=== PATIENT | female | born 1985 | race African-American/Black ===

== ENCOUNTER 2016-10-28 21:06 | Emergency (ER) | payer MEDICAID, OTHER ==
[~2016-10-28] VITALS: Ht 157.5 cm; Wt 53.0 kg
[2016-10-28 22:13] VITALS: BP 100/69
[2016-10-28 23:49] LABS: CLARITY URINE CLOUDY (CLEAR); COLOR URINE YELLOW (YELLOW); GLUCOSE URINE NEGATIVE (NEGATIVE); KETONES URINE NEGATIVE (NEGATIVE); LEUKOCYTE ESTERASE URINE NEGATIVE (NEGATIVE); NITRITE URINE NEGATIVE (NEGATIVE); OCCULT BLOOD URINE TRACE (NEGATIVE); PH URINE 6.5 (4.5-8.0); PROTEIN URINE NEGATIVE (NEGATIVE); SPECIFIC GRAVITY URINE 1.017 (1.005-1.030)
[2016-10-29] MEDS ORDERED: ACETAMINOPHEN 500MG TABLET PO ONE
== END 2016-10-29 00:45 | disposition home or self-care (01) ==
LOC: ER 22:06
DX: B34.9 Viral infection, unspecified (principal); K21.9 Gastro-esophageal reflux disease without esophagitis; J45.909 Unspecified asthma, uncomplicated
CPT/HCPCS: 81001; 81025; 99283

== ENCOUNTER 2017-10-11 11:08 | Emergency (ER) | payer MEDICAID ==
[~2017-10-11] VITALS: Ht 152.4 cm; Wt 52.0 kg
[2017-10-11 11:31] VITALS: BP 110/77
[2017-10-11] MEDS ORDERED: CYCLOBENZAPRINE 10MG TABLET PO ONE (13:30)
[2017-10-11] MEDS ORDERED: KETOROLAC 60MG/2ML VIAL IM ONE (13:30)
== END 2017-10-11 13:50 | disposition home or self-care (01) ==
LOC: ER 13:50
DX: M54.5 Low back pain (principal); F12.90 Cannabis use, unspecified, uncomplicated
CPT/HCPCS: 96372; 99283; J1885

== ENCOUNTER 2018-07-24 04:57 | Emergency (ER) | payer MEDICAID ==
[~2018-07-24] VITALS: Ht 167.6 cm; Wt 58.0 kg
[2018-07-24] MEDS ORDERED: ACETAMINOPHEN 500MG TABLET PO ONE (07:30)
[2018-07-24 08:32] VITALS: BP 100/70
== END 2018-07-24 09:48 | disposition home or self-care (01) ==
LOC: ER 04:57
DX: S80.11XA Contusion of right lower leg, initial encounter (principal); F17.200 Nicotine dependence, unspecified, uncomplicated; F12.10 Cannabis abuse, uncomplicated; W10.8XXA Fall (on) (from) other stairs and steps, initial encounter; Y93.89 Activity, other specified; Y92.89 Other specified places as the place of occurrence of the external cause; Y99.8 Other external cause status
CPT/HCPCS: 73590; 99283; Z7610

== ENCOUNTER 2018-10-03 13:47 | Emergency (ER) | payer MEDICAID ==
[~2018-10-03] VITALS: Ht 152.4 cm; Wt 59.0 kg
[2018-10-03 15:56] LABS: CLARITY URINE CLEAR (CLEAR); COLOR URINE YELLOW (YELLOW); KETONES URINE 1+ (NEGATIVE); LEUKOCYTE ESTERASE URINE NEGATIVE (NEGATIVE); NITRITE URINE NEGATIVE (NEGATIVE); OCCULT BLOOD URINE NEGATIVE (NEGATIVE); PH URINE 6.5 (4.5-8.0); PROTEIN URINE NEGATIVE (NEGATIVE); SPECIFIC GRAVITY URINE 1.021 (1.005-1.030)
[2018-10-03 17:20] VITALS: BP 115/68
== END 2018-10-03 17:39 | disposition home or self-care (01) ==
LOC: ER 13:47
DX: R00.2 Palpitations (principal); F41.9 Anxiety disorder, unspecified; F12.10 Cannabis abuse, uncomplicated; F17.210 Nicotine dependence, cigarettes, uncomplicated; Z71.6 Tobacco abuse counseling
CPT/HCPCS: 71045; 81003; 93005; 99284; 99406

== ENCOUNTER 2021-04-25 14:11 | Emergency (ER) | payer MEDICAID ==
[~2021-04-25] VITALS: Ht 152.4 cm; Wt 47.8 kg
[2021-04-25] MEDS ORDERED: DOXYCYCLINE HYCLATE 100MG CAPSULE PO ONE (15:15)
[2021-04-25] MEDS ORDERED: IBUPROFEN 600MG TABLET PO ONE (15:15)
[2021-04-25] MEDS ORDERED: CEFTRIAXONE SODIUM 500 MG/VIAL IM ONE (15:15)
[2021-04-25 15:47] VITALS: BP 100/72
[2021-04-25 15:55] LABS: CLARITY URINE CLOUDY (CLEAR); COLOR URINE YELLOW (YELLOW); KETONES URINE NEGATIVE (NEGATIVE); LEUKOCYTE ESTERASE URINE TRACE (NEGATIVE); NITRITE URINE NEGATIVE (NEGATIVE); OCCULT BLOOD URINE NEGATIVE (NEGATIVE); PROTEIN URINE NEGATIVE (NEGATIVE); SPECIFIC GRAVITY URINE 1.023 (1.005-1.030); UROBILINOGEN URINE 0.2 E.U./dL (0.2-1.0)
[2021-04-25] MEDS ORDERED: IBUP-2029 MT ×2 (16:11)
[2021-04-25] MEDS ORDERED: DOXY-326 MT ×2 (16:11)
[2021-04-26] MEDS ORDERED: IBUP-2029 MT (10:15)
[2021-04-26] MEDS ORDERED: DOXY-326 MT (10:15)
== END 2021-04-25 16:35 | disposition home or self-care (01) ==
LOC: ER 14:11
DX: J02.9 Acute pharyngitis, unspecified (principal); A64 Unspecified sexually transmitted disease; F41.9 Anxiety disorder, unspecified; J45.909 Unspecified asthma, uncomplicated; F12.10 Cannabis abuse, uncomplicated
CPT/HCPCS: 81003; 87491; 87591; 96372; 99283; J0696

== ENCOUNTER 2024-06-06 00:58 | Emergency (ER) | payer MEDICAID, OTHER ==
[~2024-06-06] VITALS: Ht 162.6 cm; Wt 64.0 kg
[~2024-06-06 00:58] MED LIST: DOXY-461 MT; IBUP-2029 MT
[2024-06-06 01:07] VITALS: O2SAT 96
[2024-06-06] MEDS: LIDOCAINE HCL/PF 1% 10 MG/ML 5ML VIAL INFIL ONE (05:00)
[2024-06-06] MEDS: BACITRACIN ZINC OINT UDPKT TOP ONE (05:00)
[2024-06-06] MEDS: TETANUS, DIPHTHERIA, PERTUSSIS VAC/PF 0.5ML (>10YR OLD) IM ONE (05:00)
[2024-06-06 06:43] LABS: HCG SCREEN NEGATIVE
[2024-06-06 07:39] VITALS: TEMP 36.8
[2024-06-06 10:00] VITALS: BP 112/72; PULSE 80; RESP 18; O2SAT 97
== END 2024-06-06 10:01 | disposition home or self-care (01) ==
LOC: ER 01:09
DX: S05.32XA Ocular laceration without prolapse or loss of intraocular tissue, left eye, initial encounter (principal); S09.90XA Unspecified injury of head, initial encounter; F10.129 Alcohol abuse with intoxication, unspecified; F12.90 Cannabis use, unspecified, uncomplicated; J45.909 Unspecified asthma, uncomplicated; F41.9 Anxiety disorder, unspecified; Z79.899 Other long term (current) drug therapy; Y90.9 Presence of alcohol in blood, level not specified
CPT/HCPCS: 82962; 84703; 70450; 90715; 12013; 90471; 99285; J2003; Z7610